=== PATIENT | female | born 1950 | race Asian ===

== ENCOUNTER 2018-01-28 02:33 | Emergency (ER) | payer OTHER ==
[~2018-01-28] VITALS: Ht 160 cm; Wt 63.5 kg
[2018-01-28 02:37] VITALS: Ht 160 cm; Wt 63.5 kg
[2018-01-28 03:35] LABS: CALCIUM 8.1 mg/dL (8.5-10.1); CARBON DIOXIDE 28.2 mmol/L (21-32); CHLORIDE SERUM 98 mmol/L (98-107); CREATININE SERUM 0.6 mg/dL (0.6-1.0); GFR1 > 60 mL/min; GLUCOSE SERUM 168 mg/dL (74-106); POTASSIUM SERUM 3.1 mmol/L (3.5-5.1); SODIUM SERUM 137 mmol/L (136-145)
[2018-01-28 03:36] LABS: PLATELET COUNT 227 x10^3mcL (130-400); RED CELL DISTRIBUTION WIDTH 13.1 % (11.5-14.5)
[2018-01-28 03:41] LABS: ALBUMIN 4.2 g/dL (3.4-5.0); ALKALINE PHOSPHATASE 77 U/L (46-116); ALT/SGPT 35 U/L (14-59); AST/SGOT 29 U/L (15-37); BILIRUBIN TOTAL 1.73 mg/dL (0.20-1.00); CHOLESTEROL 172 mg/dL (<200); MAGNESIUM 1.5 mg/dL (1.8-2.4)
[2018-01-28 03:42] LABS: BASOPHIL % 0 % (0-2)
[2018-01-28 03:44] LABS: HDL CHOLESTEROL 69 mg/dL (40-60)
[2018-01-28 04:26] VITALS: BP 171/80
== END 2018-01-28 04:26 | disposition short-term general hospital (02) ==
LOC: ED 02:33
PROVIDERS: Emergency Medicine
DX: I62.9 Nontraumatic intracranial hemorrhage, unspecified (principal); I10 Essential (primary) hypertension; R11.2 Nausea with vomiting, unspecified
CPT/HCPCS: 83880; J1100; J2060; J2550; J3490; J7030; J8597; Q0092